=== PATIENT | female | born 1985 | race Caucasian/White ===

== ENCOUNTER 2017-09-07 12:39 | Inpatient (IN) | payer OTHER ==
[2017-09-07 16:00] LABS: Basophils % (Auto) 0.2 % (0.0-1.8); Eosinophils % (Auto) 0.4 % (0.0-4.3); Hematocrit 38.5 % (30.3-42.9); Hemoglobin 13.1 gm/dl (10.1-14.3); Mean Corpuscular HGB Conc 34 % (30-34); Mean Corpuscular Hemoglobin 31 pg (28-32); Mean Corpuscular Volume 90 fl (79-97); Red Blood Count 4.27 M/mm3 (3.65-5.03); Red Cell Distribution Width 14.5 % (13.2-15.2); White Blood Count 7.4 K/mm3 (4.5-11.0)
[2017-09-07] MEDS ORDERED: ePHEDrine SULFATE IV PRN (16:05)
[2017-09-07] MEDS ORDERED: XYLOCAINE 2% INFILTRATI ONE (16:05)
[2017-09-07] MEDS ORDERED: POLYCILLIN/NS 2 GM/100 ML 2 GM/100 ML BAG IV ONE (16:05)
[2017-09-07] MEDS ORDERED: SUBLIMAZE IV PRN (16:05)
--- NOTE | 2017-09-07 16:23 | History and Physical Report ---
History of Present Illness Date of examination: 09/07/17 Date of admission: 09/07/17 13:14 Chief complaint: at 40 weeks, 3 days gestation; leaking of fluid History of present illness: 31 year old female presents to L&D with complaint of leaking clear fluid from vagina since 9:45 AM today. Patient denies vaginal bleeding. Patient reports occasional contraction. Patient reports active movement. 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 denies: smoking, alcohol abuse, prescription drug abuse, IV drug use - Obstetrical History Expected Date of Delivery: 09/04/17 Actual Gestation: 40 Week(s) 3 Day(s) : 5 Para: 3 Hx # Term Pregnancies: 4 Number of Pregnancies: 0 Spontaneous Abortions: 1 Induced : 0 Number of Living Children: 3 Medications and Allergies Allergies Allergy/AdvReac Type Severity Reaction Status Date / Time No Known Allergies Allergy Verified 09/07/17 12:46 Home Medications Medication Instructions Recorded Confirmed Last Taken Type Acetaminophen [Acetaminophen 325 mg NE Q4HR PRN #30 supp 12/10/14 09/07/17 Unknown Rx SUPPOS] Ferrous Sulfate [Feosol 325 MG tab] 325 mg PO BID #60 tablet 12/10/14 09/07/17 Unknown Rx HYDROcodone/APAP 5-325 [[place] 1 each PO Q6HR PRN #20 tablet 12/10/14 09/07/17 Unknown Rx 5-325 mg TAB] Misoprostol [Cytotec] 400 mcg PO Q4H #4 tablet 12/10/14 09/07/17 Unknown Rx Multivitamin [Multi Vitamin Daily] 1 each PO DAILY #30 tablet 12/10/14 09/07/17 Unknown Rx Active Meds: Active Medications Fentanyl (Sublimaze) 100 mcg IV Q2H PRN PRN Reason: Labor Pain Ampicillin Sodium (Polycillin/Ns 2 Gm/100 Ml) 2 gm in 100 mls @ 100 mls/hr IV ONCE ONE PRN Reason: Protocol Stop: 09/07/17 17:04 Lactated Ringer's (Lactated Ringers) 1,000 mls @ 125 mls/hr IV DIRECT YAMEL Oxytocin/Sodium Chloride (Pitocin/Ns 20 Unit/1000ml Drip) 20 units in 1,000 mls @ 125 mls/hr IV DIRECT YAMEL Oxytocin/Sodium Chloride (Pitocin/Ns 30 Unit/500ml) 30 units in 500 mls @ 0 mls /hr IV TITR YAMEL; Per Protocol PRN Reason: Protocol Ampicillin Sodium (Polycillin/Ns 1 Gm/50 Ml) 1 gm in 50 mls @ 100 mls/hr IV Q4HR YAMEL PRN Reason: Protocol Review of Systems All systems: negative (leaking of fluid from vagina and contractions) - Vital Signs Vital signs: Vital Signs Temp Pulse Resp BP Pulse Ox 98 F 84 20 115/70 96 09/07/17 12:59 09/07/17 12:59 09/07/17 12:59 09/07/17 12:59 09/07/17 12:59 Temp Pulse Resp BP Pulse Ox 98.5 F 68 18 128/69 97 09/07/17 15:11 09/07/17 15:46 09/07/17 15:11 09/07/17 15:46 09/07/17 15:07 - Physical Exam Breasts: Positive: deferred Cardiovascular: Regular rate, Normal S1, Normal S2 Lungs: Positive: Clear to auscultation Abdomen: Positive: normal appearance, soft. Negative: distention, tenderness, guarding, rigidity Vulva: both: normal (no lesions seen on careful exam with bright light upon admission) Uterus: Positive: enlarged (gravid). Negative: tender Anus/Rectum: Positive: normal perianal skin Extremities: Positive: normal. Negative: tenderness, edema - Obstetrical FHR: category 1 Uterine Contraction Monitor Mode: External Cervical Dilatation: 3 Cervical Effacement Percentage: 90 station: -1 Uterine Contraction Pattern: Irregular Uterine Contraction Intensity: Moderate Results Result Diagrams: 09/07/17 15:42 Abnormal lab results 09/07/17 Range/Units 15:42 Seg Neutrophils % 77.4 H (40.0-70.0) % All other labs normal. Assessment and Plan A: at 40 weeks, 3 days gestation. Spontaneous rupture of membranes. Early labor. GBS positive. P: Admit. GBS prophylaxis. Augmentation of labor. Expect . Discussed with patient risks and benefits of Pitocin augmentation of labor. Patient consented to Pitocin augmentation of labor.
[2017-09-07 16:44] LABS: Platelet Count 76 K/mm3 (140-440)
[2017-09-07] MEDS ORDERED: PITOCin/NS 20 UNIT/1000ML DRIP 20 UNITS/1,000 ML BAG IV SCH (17:00)
[2017-09-07] MEDS ORDERED: LACTATED RINGERS 1,000 ML IV SCH (17:00)
[2017-09-07] MEDS ORDERED: PITOCin/NS 30 UNIT/500ML 30 UNITS/500 ML BAG IV SCH (17:00)
[2017-09-07 18:40] LABS: Alanine Aminotransferase 12 units/L (7-56); Albumin 3.2 g/dL (3.9-5); Albumin/Globulin Ratio 1.1 %; Alkaline Phosphatase 122 units/L (35-129); Anion Gap 19 mmol/L; BUN/Creatinine Ratio 27; Blood Urea Nitrogen 8 mg/dL (7-17); Carbon Dioxide 21 mmol/L (22-30); Chloride 102.5 mmol/L (98-107); Glucose 68 mg/dL (65-100); Potassium 3.9 mmol/L (3.6-5.0); Sodium 139 mmol/L (137-145); Total Protein 6.1 g/dL (6.3-8.2)
[2017-09-07] MEDS ORDERED: POLYCILLIN/NS 1 GM/50 ML 1 GM/50 ML BAG IV SCH (20:10)
[2017-09-07] MEDS ORDERED: BRETHINE SUB-Q ONE (20:50)
[2017-09-07] MEDS ORDERED: BRETHINE ONE (20:54)
--- NOTE | 2017-09-07 20:55 | Event Note ---
Date: 09/07/17 Variable FHR decelerations noted per monitor. SVE 5-6/100/0. IV fluid bolus given, O2 per face mask applied, and left lateral position instituted. FSE and IUPC placed and amnioinfusion began. Patient positioned in hands and knees position. FHR baseline 120 with moderate variability. Consulted Dr. Marcial re: FHR tracing and interventions and Dr. Marcial viewed FHR tracing.
[2017-09-07] MEDS ORDERED: NACL 0.9% 1000 ML 1,000 ML VG SCH (21:00)
--- NOTE | 2017-09-07 22:06 | Event Note ---
Date: 09/07/17 SVE 7/100/0. Reassuring heart rate tracing. Patient remains in left lateral position. Pitocin is still off. Regular contractions. Uterus plapates soft between contractions.
[2017-09-08] MEDS ORDERED: XYLOCAINE 2% INFILTRATI ONE (00:32)
[2017-09-08] MEDS ORDERED: LANSINOH TP PRN (01:24)
[2017-09-08] MEDS ORDERED: NORCO 5/325 PO PRN (01:24)
[2017-09-08] MEDS ORDERED: TUCKS PAD TP PRN (01:24)
[2017-09-08] MEDS ORDERED: MILK OF MAGNESIA PO PRN (01:24)
--- NOTE | 2017-09-08 01:36 | Procedure Note ---
OB Delivery Note - Vaginal Delivery presentation: vertex Delivery position: OA Intrapartum events: shoulder dystocia Delivery induction: oxytocin Delivery monitor: external FHT, external uterine, internal FHT, internal uterine Route of delivery: Delivery placenta: spontaneous Delivery cord: nuchal cord, 3 umbilical vessels Episiotomy: none Delivery laceration: none Anesthesia: none Delivery comments: of liveborn male infant weighing 7 lb. 14 oz. over intact perineum with apgars of 8/9. Mild shoulder dystocia, resoved with delivery of posterior shoulder. 3 VC double clamped and cut and baby taken to radiant warmer and suctioned, dried, and stimulated. Spontaneous cry and respirations. EBL 250 ml. Spontaneous delvery of intact placenta and membranes. Pitocin to IV fluids after delivery of placenta. Fundus firm and midline. Sponge count correct. Mother and baby stable in birthing room.
[2017-09-08] MEDS ORDERED: SODIUM CHLORIDE FLUSH SYRINGE 10 ML IV PRN (02:00)
[2017-09-08] MEDS: MOTRIN PO SCH ×3 (02:15→18:05)
[2017-09-08 14:25] LABS: Hematocrit 35.9 % (30.3-42.9)
[2017-09-09] MEDS: MOTRIN PO SCH ×3 (00:23→12:23)
[2017-09-09] MEDS ORDERED: BOOSTRIX IM ONE (06:00)
--- NOTE | 2017-09-09 09:28 | Progress Note ---
Assessment and Plan A: PPD #1 - stable P; Discharge home today Subjective - Subjective Date of service: 09/09/17 Principal diagnosis: Patient reports: appetite normal [place]: doing well Objective - Vital Signs Latest vital signs: Vital Signs Temp Pulse Resp BP BP Pulse Ox 09/09/17 08:10 98 F 62 18 107/60 100 09/09/17 07:22 62 99 09/09/17 01:38 98.1 F 66 18 106/61 09/08/17 16:47 85 99 09/08/17 16:46 98.7 F 75 20 116/79 99 09/08/17 11:38 98.9 F 75 20 99/54 97 Intake and Output 09/08/17 09/09/17 09/09/17 22:59 06:59 14:59 Intake Total 360 480 Balance 360 480 Intake: Oral 360 Intake, Free Water 480 Other: Total, Intake Amount 360 # Voids Void 1 - Exam Breasts: Present: deferred Cardiovascular: Present: Regular rate Lungs: Present: Clear to auscultation Abdomen: Present: soft Vulva: both: normal Uterus: Present: tenderness, fundal height below umbilicus Deep Tendon Reflex Grade: Normal +2
--- NOTE | 2017-09-09 09:30 | Discharge Summary ---
Providers - Providers Date of Admission: 09/07/17 13:14 Date of discharge: 09/09/17 Attending physician: FREDDY MOTA MD Primary care physician: FREDDY MOTA MD Hospitalization Reason for admission: active labor Delivery: Episiotomy: none Laceration: none Other procedures: none complications: none Discharge diagnosis: IUP at term delivered [place] baby: male Condition at discharge: Good Disposition: DC-01 TO HOME OR SELFCARE Plan - Provider Discharge Summary Activity: routine, no sex for 6 weeks, no strenuous exercise Diet: routine Instructions: routine Additional instructions: [] Smoking cessation referral if applicable(refer to patient education folder for contact #) [] Refer to [facility] Booklet Call your doctor immediately for: * Fever > 100.5 * Heavy vaginal bleeding ( >1 pad per hour) * Severe persistent headache * Shortness of breath * Reddened, hot, painful area to leg or breast * Drainage or odor from incision. * Keep incision clean and dry at all times and follow doctor's instructions regarding bathing/showering - Follow up plan Follow up: [facility] [Provider Group] - 6 Weeks
[2017-09-09] MEDS ORDERED: Fluarix Quad 2017-2018(36 MOS+) IM ONE (12:00)
[2017-09-09 14:12] VITALS: BP 104/63
== END 2017-09-09 15:35 | disposition home or self-care (01) | DRG 775 ==
LOC: TRG 12:39 → LD 13:14 → OB 09-08 03:48
PROVIDERS: ADMIT Obstetrics & Gynecology; ATTEND Obstetrics & Gynecology
PROC: 10E0XZZ Delivery of Products of Conception, External Approach (ICD-10-PCS; principal; 2017-09-07)
PROC: 3E0P3VZ Introduction of Hormone into Female Reproductive, Percutaneous Approach (ICD-10-PCS; 2017-09-07)
DX: O99.824 Streptococcus B carrier state complicating childbirth (principal); Z3A.40 40 weeks gestation of pregnancy; Z37.0 Single live birth; O66.0 Obstructed labor due to shoulder dystocia; O69.81X0 Labor and delivery complicated by cord around neck, without compression, not applicable or unspecified
CPT/HCPCS: 36415; 80053; 85014; 85018; 85025; 86850; 86900; 86901; 90471; 90686; 90715; 99211; G0008; G0463; J0290; J2590; J3105; J7030; J7120

== ENCOUNTER 2022-02-20 00:42 | Emergency (ER) | payer SELFPAY ==
[2022-02-20 00:48] VITALS: BP 146/92
[2022-02-20 01:08] LABS: Bilirubin,Urine NEG (Negative); Blood,Urine LG (Negative); Color,Urine Red (Yellow); Urobilinogen,Urine < 2.0 mg/dL (<2.0)
[2022-02-20 01:10] LABS: Protein,Urine >500 mg/dL (Negative); RBC,Urine > 182.0 /HPF (0.0-6.0)
[2022-02-20 01:11] LABS: WBC,Urine < 1.0 /HPF (0.0-6.0)
[2022-02-20 01:12] LABS: Basophils # (Auto) 0.1 K/mm3 (0.0-0.1); Basophils % (Auto) 0.7 % (0.0-1.8); Eosinophils # (Auto) 0.2 K/mm3 (0.0-0.4); Eosinophils % (Auto) 2.1 % (0.0-4.3); Hematocrit 37.8 % (30.3-42.9); Hemoglobin 12.1 gm/dl (10.1-14.3); Lymphocytes % (Auto) 37.8 % (13.4-35.0); Mean Corpuscular HGB Conc 32 % (30-34); Mean Corpuscular Volume 90 fl (79-97); Monocytes # (Auto) 0.4 K/mm3 (0.0-0.8); Monocytes % (Auto) 5.1 % (0.0-7.3); Platelet Count 173 K/mm3 (140-440); Red Cell Distribution Width 14.7 % (13.2-15.2)
--- NOTE | 2022-02-20 05:11 | Emergency Department Report ---
ED General Adult HPI - General Chief complaint: Vaginal Bleeding Stated complaint: HEAVY PERIOD Time Seen by Provider: 02/20/22 03:39 Source: patient Mode of arrival: Ambulatory Limitations: No Limitations - History of Present Illness Initial comments: 36-year-old female, department complaining of having abnormal periods for the last 2months. States she last had a last period in December and thought that she had missed it. 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 Since then she stopped sending her. Came on earlier this month and now again. Currently the bleeding is at the level of spotting to the for blood clots that fluctuate throughout the course of the week no nausea no vomiting no fever no fever chills or sweats no new medication no dizziness associated with the symptoms Quality: dull Consistency: constant Improves with: none Worsens with: none Associated Symptoms: denies other symptoms Treatments Prior to Arrival: none - Related Data Previous Rx's Medication Instructions Recorded Last Taken Type Acetaminophen [Acetaminophen 325 mg MD Q4HR PRN #30 supp 12/10/14 Unknown Rx SUPPOS] Ferrous Sulfate [Feosol 325 MG tab] 325 mg PO BID #60 tablet 12/10/14 Unknown Rx HYDROcodone/APAP 5-325 [[place] 1 each PO Q6HR PRN #20 tablet 12/10/14 Unknown Rx 5-325 mg TAB] Multivitamin [Multi Vitamin Daily] 1 each PO DAILY #30 tablet 12/10/14 Unknown Rx miSOPROStoL [Cytotec] 400 mcg PO Q4H #4 tablet 12/10/14 Unknown Rx Allergies Allergy/AdvReac Type Severity Reaction Status Date / Time No Known Allergies Allergy Verified 09/07/17 12:46 ED Review of Systems ROS: Stated complaint: HEAVY PERIOD Other details as noted in HPI Comment: All other systems reviewed and negative ED Past Medical Hx - Past Medical History Hx Hypertension: No Hx Congestive Heart Failure: No Hx Diabetes: No Hx Deep Vein Thrombosis: No Hx Renal Disease: No Hx Sickle Cell Disease: No Hx Seizures: No Hx Asthma: No Hx COPD: No Hx HIV: No - Surgical History Hx Cholecystectomy: Yes Additional Surgical History: gallbladder removed 2012 - Social History Smoking Status: Never Smoker - Medications Home Medications: Home Medications Medication Instructions Recorded Confirmed Last Taken Type Acetaminophen [Acetaminophen 325 mg MD Q4HR PRN #30 supp 12/10/14 09/07/17 Unknown Rx SUPPOS] Ferrous Sulfate [Feosol 325 MG tab] 325 mg PO BID #60 tablet 12/10/14 09/07/17 Unknown Rx HYDROcodone/APAP 5-325 [[place] 1 each PO Q6HR PRN #20 tablet 12/10/14 09/07/17 Unknown Rx 5-325 mg TAB] Multivitamin [Multi Vitamin Daily] 1 each PO DAILY #30 tablet 12/10/14 09/07/17 Unknown Rx miSOPROStoL [Cytotec] 400 mcg PO Q4H #4 tablet 12/10/14 09/07/17 Unknown Rx ED Physical Exam - General Limitations: No Limitations General appearance: alert, in no apparent distress - Head Head exam: Present: atraumatic, normocephalic - Eye Eye exam: Present: normal appearance, PERRL - ENT ENT exam: Present: normal exam, normal orophraynx, mucous membranes moist, TM's normal bilaterally - Neck Neck exam: Present: normal inspection, full ROM - Respiratory Respiratory exam: Present: normal lung sounds bilaterally. Absent: respiratory distress - Cardiovascular Cardiovascular Exam: Present: regular rate, normal rhythm. Absent: systolic murmur, diastolic murmur, rubs, gallop - GI/Abdominal GI/Abdominal exam: Present: soft, normal bowel sounds - Extremities Exam Extremities exam: Present: normal inspection - Back Exam Back exam: Present: normal inspection - Neurological Exam Neurological exam: Present: alert, oriented X3 - Psychiatric Psychiatric exam: Present: normal affect, normal mood - Skin Skin exam: Present: warm, dry, intact, normal color. Absent: rash ED Course Vital Signs 02/20/22 00:47 Temperature 98.2 F Pulse Rate 90 Respiratory 20 Rate Blood Pressure 146/92 O2 Sat by Pulse 97 Oximetry ED Medical Decision Making - Lab Data Result diagrams: 02/20/22 01:01 Critical care attestation.: If time is entered above; I have spent that time in minutes in the direct care of this critically ill patient, excluding procedure time. ED Disposition Clinical Impression: Dysfunctional uterine bleeding, Menorrhagia Disposition: HOME / SELF CARE / HOMELESS Is pt being admited?: No Does the pt Need Aspirin: No Condition: Stable Instructions: Menorrhagia, [id number], Dysfunctional Uterine Bleeding Additional Instructions: You have been evaluated emergency department today for vaginal bleeding evaluation suggest that your symptoms are due to a nonemergent cause at this present time. Please follow-up with your primary care provider within 2 days of follow-up with your AIR TOOL OPERATOR within 2 days return to emergency department if you experience any worsening uncontrolled bleeding, shortness of breath, feeling lightheaded, chest tightness, abdominal cramping, severe abdominal pain, fevers, vomiting or for any other concerning symptoms. Coming current hemoglobin is 12.1 Referrals: PRIMARY CARE, [Primary Care Provider] - 3-5 Days
== END 2022-02-20 05:18 | disposition home or self-care (01) ==
LOC: ED 00:42
DX: N93.9 Abnormal uterine and vaginal bleeding, unspecified (principal); N92.0 Excessive and frequent menstruation with regular cycle; Z90.49 Acquired absence of other specified parts of digestive tract
CPT/HCPCS: 36415; 81001; 84702; 84703; 85025; 86900; 86901; 99283